=== PATIENT | male | born 1965 | race Caucasian/White ===

== ENCOUNTER 2017-09-06 23:13 | Emergency (ER) | payer SELFPAY ==
[2017-09-06 23:53] VITALS: BP 165/90; PULSE 98; RESP 16; TEMP 98.2; O2SAT 95
== END 2017-09-07 02:30 | disposition left against medical advice (07) ==
LOC: NED 23:13
DX: F99 Mental disorder, not otherwise specified (principal)
CPT/HCPCS: 99281

== ENCOUNTER 2017-09-12 04:19 | Emergency (ER) | payer MEDICARE, OTHER ==
[2017-09-12 04:23] VITALS: BP 168/62; PULSE 100; RESP 23; TEMP 97.6; O2SAT 91
[2017-09-12 04:41] VITALS: BP 169/85; PULSE 90; RESP 18; TEMP 98.5; O2SAT 84
[2017-09-12 04:44] VITALS: RESP 17; O2SAT 95
--- NOTE | 2017-09-12 04:48 | PD ---
HPI . abdomen pain Chief Complaint: Abdominal Pain Time Seen by Provider: 04:28 Travel History International Travel<30 days: No Contact w/Intl Traveler<30days: No Traveled to known affect area: No History of Present Illness HPI Patient is a 52-year-old male says he is having left-sided abdominal pain epigastric to his suprapubic area he has been vomiting he is having diarrhea he is very tearful. Patient reports he has had his gallbladder out his appendix out he feels nauseous pain and has vomiting he cannot keep anything down he seems emotionally labile, denies fever does admit to alcohol use and chronic abuse PFSH Past Medical History Hx Anticoagulant Therapy: Yes Cirrhosis: Yes Diabetes: Yes Patient Takes Glucophage: No Diverticulitis: Yes Hepatitis: Yes (C) Medical other: Yes Tetanus Vaccination: Unknown Past Surgical History Cholecystectomy: Yes Other Surgery: Yes (brain tumor removed, IVC filter) Social History Alcohol Use: Yes (occaisonaly a 5th of [facility]) Tobacco Use: No Substance Use: No Allergies-Medications (Allergen,Severity, Reaction): Coded Allergies: No Known Allergies (Unverified , 09/12/17) Reported Meds & Prescriptions Reported Meds & Active Scripts Active No Active Prescriptions or Reported Medications Review of Systems Except as stated in HPI: all other systems reviewed are Neg Physical Exam Narrative GENERAL: Tearful in no obvious distress but seems emotionally distraught SKIN: Warm and dry. HEAD: Atraumatic. Normocephalic. EYES: Pupils equal and round. No scleral icterus. No injection or drainage. ENT: No nasal bleeding or discharge. Mucous membranes pink and moist. NECK: Trachea midline. No JVD. CARDIOVASCULAR: Regular rate and rhythm. RESPIRATORY: No accessory muscle use. Clear to auscultation. Breath sounds equal bilaterally. GASTROINTESTINAL: Abdomen left abdomen pain left upper quadrant left lower quadrant tenderness no CVA tenderness MUSCULOSKELETAL: Extremities without clubbing, cyanosis, or edema. No obvious deformities. NEUROLOGICAL: Awake and alert. No obvious cranial nerve deficits. Motor grossly within normal limits. Five out of 5 muscle strength in the arms and legs. Normal speech. PSYCHIATRIC: Appropriate mood and affect; insight and judgment normal. Data Data Last Documented VS Vital Signs Date Time Temp Pulse Resp B/P (MAP) Pulse Ox O2 Delivery O2 Flow Rate FiO2 09/12/17 05:54 09/12/17 04:44 17 95 Nasal Cannula 3.00 09/12/17 04:41 98.5 90 Orders Orders Complete Blood Count With Diff (09/12/17 04:54) Comprehensive Metabolic Panel (09/12/17 04:54) Ckmb (Isoenzyme) Profile (09/12/17 04:54) Troponin I (09/12/17 04:54) Lipase (09/12/17 04:54) Chest, Single Ap (09/12/17 04:54) Alcohol (Ethanol) (09/12/17 04:54) Famotidine Inj (Pepcid Inj) (09/12/17 05:00) Ondansetron Odt (Zofran Odt) (09/12/17 05:00) Ketorolac Inj (Toradol Inj) (09/12/17 05:15) CKMB (09/12/17 05:00) CKMB% (09/12/17 05:00) Labs Laboratory Tests Test 09/12/17 05:00 White Blood Count 5.8 TH/MM3 Red Blood Count 4.83 MIL/MM3 Hemoglobin 13.7 GM/DL Hematocrit 41.1 % Mean Corpuscular Volume 85.0 FL Mean Corpuscular Hemoglobin 28.4 PG Mean Corpuscular Hemoglobin Concent 33.4 % Red Cell Distribution Width 13.4 % Platelet Count 174 TH/MM3 Mean Platelet Volume 8.6 FL Neutrophils (%) (Auto) 47.8 % Lymphocytes (%) (Auto) 41.5 % Monocytes (%) (Auto) 7.9 % Eosinophils (%) (Auto) 2.1 % Basophils (%) (Auto) 0.7 % Neutrophils # (Auto) 2.8 TH/MM3 Lymphocytes # (Auto) 2.4 TH/MM3 Monocytes # (Auto) 0.5 TH/MM3 Eosinophils # (Auto) 0.1 TH/MM3 Basophils # (Auto) 0.0 TH/MM3 CBC Comment DIFF FINAL Differential Comment Blood Urea Nitrogen 4 MG/DL Creatinine 0.84 MG/DL Random Glucose 390 MG/DL Total Protein 8.6 GM/DL Albumin 3.9 GM/DL Calcium Level 8.5 MG/DL Alkaline Phosphatase 166 U/L Aspartate Amino Transf (AST/SGOT) 100 U/L Alanine Aminotransferase (ALT/SGPT) 77 U/L Total Bilirubin 0.3 MG/DL Sodium Level 136 MEQ/L Potassium Level 3.6 MEQ/L Chloride Level 95 MEQ/L Carbon Dioxide Level 23.1 MEQ/L Anion Gap 18 MEQ/L Estimat Glomerular Filtration Rate 96 ML/MIN Total Creatine Kinase 425 U/L Creatine Kinase MB 3.2 NG/ML Creatine Kinase MB % 0.8 % Troponin I LESS THAN 0.02 NG/ML Lipase 117 U/L Ethyl Alcohol Level 365 MG/DL MDM Medical Decision Making Medical Screen Exam Complete: Yes Emergency Medical Condition: Yes Medical Record Reviewed: Yes Differential Diagnosis etoh intox vs pancreatis vs gastritis vs GB disease vs other Narrative Course pt got irritable refused to wait for dispo diagnosis work up and left AMA Diagnosis Primary Impression: Abdominal pain Scripts No Active Prescriptions or Reported Meds Disposition: 07 AGAINST MEDICAL ADVICE Duncan Guadalupe MD Sep 12, 2017 04:47
[2017-09-12] MEDS ORDERED: ONDANSETRON ODT 4 MG TAB PO ONE (05:00)
[2017-09-12] MEDS ORDERED: FAMOTIDINE 20 MG/2 ML VIAL IV PUSH SCH (05:00)
[2017-09-12 05:12] LABS: AUTOMATED NEUTROPHIL # 2.8 TH/MM3 (1.8-7.7); BASOPHIL % 0.7 % (0.0-2.0); EOSINOPHIL # 0.1 TH/MM3 (0-0.4); EOSINOPHIL % 2.1 % (0.0-4.0); HEMATOCRIT 41.1 % (39.0-51.0); HEMOGLOBIN 13.7 GM/DL (13.0-17.0); LYMPH % 41.5 % (9.0-44.0); LYMPHOCYTE # 2.4 TH/MM3 (1.0-4.8); MEAN CORPUSCULAR HEMOGLOBIN 28.4 PG (27.0-34.0); MEAN CORPUSCULAR HGB CONC 33.4 % (32.0-36.0); MEAN PLATELET VOLUME 8.6 FL (7.0-11.0); MONO % 7.9 % (0.0-8.0); MONOCYTE # 0.5 TH/MM3 (0-0.9); NEUT % 47.8 % (16.0-70.0); PLATELET COUNT 174 TH/MM3 (150-450); RED BLOOD COUNT 4.83 MIL/MM3 (4.50-5.90); RED CELL DISTRIBUTION WIDTH 13.4 % (11.6-17.2); WHITE BLOOD COUNT 5.8 TH/MM3 (4.0-11.0)
[2017-09-12] MEDS ORDERED: KETOROLAC TROMETHAMINE 30 MG/ML (IVP) VIAL IV PUSH ONE (05:15)
[2017-09-12 05:38] LABS: ALKALINE PHOSPHATASE 166 U/L (45-117); TROPONIN I LESS THAN 0.02 NG/ML (0.02-0.05)
[2017-09-12 05:42] LABS: ALBUMIN 3.9 GM/DL (3.4-5.0); ALT (GPT) 77 U/L (12-78); AST (GOT) 100 U/L (15-37); BICARBONATE 23.1 MEQ/L (21.0-32.0); BLOOD UREA NITROGEN 4 MG/DL (7-18); CALCIUM 8.5 MG/DL (8.5-10.1); CHLORIDE 95 MEQ/L (98-107); CREATININE 0.84 MG/DL (0.60-1.30); GLOMERULAR FILTRATION RATE 96 ML/MIN (>89); GLUCOSE,RANDOM 390 MG/DL (74-106); SODIUM (NA) 136 MEQ/L (136-145); TOTAL BILIRUBIN ADULT 0.3 MG/DL (0.2-1.0); TOTAL PROTEIN 8.6 GM/DL (6.4-8.2)
--- NOTE | 2017-09-12 06:04 | RADRPT ---
EXAM DATE: 09/12/2017 5:59 AM EDT AGE/SEX: 52 years / Male INDICATIONS: Chest pain. CLINICAL DATA: This is the patient's initial encounter. Patient reports that signs and symptoms have been present for 1 day and indicates a pain score of 6/10. MEDICAL/SURGICAL HISTORY: Diabetes mellitus type II. None. COMPARISON: No prior exams available for comparison. FINDINGS: A single AP view of the chest demonstrates the lungs to be symmetrically aerated without evidence of mass, infiltrate or effusion. The cardiomediastinal contours are unremarkable. Osseous structures a re intact. CONCLUSION: No acute findings. Minimal basilar atelectasis. Electronically signed by: Ramos Hazel MD 09/12/2017 6:02 AM EDT
== END 2017-09-12 05:53 | disposition left against medical advice (07) ==
LOC: NEPE 04:19
DX: R10.13 Epigastric pain (principal)
CPT/HCPCS: 71045; 80053; 80307; 82550; 82552; 83690; 84484; 85025; 96374; 96375; 99284; J1885